=== PATIENT | male | born 1960 | race Caucasian/White ===

== ENCOUNTER 2017-04-08 10:51 | Day surgery (SDC) | payer OTHER ==
--- NOTE | 2017-04-05 10:47 | HP ---
DATE OF SURGERY: 04/08/2017 ADMISSION DIAGNOSIS: Umbilical hernia repair possible mesh. ANTICIPATED PROCEDURE: HISTORY OF PRESENT ILLNESS: The patient has developed umbilical hernia. He thinks this is Workman's Comp. It happened at work. He was seen and examined in the office. He does have an umbilical hernia. PAST MEDICAL HISTORY: ALLERGIES: NONE. MEDICATIONS: Synthroid, Tamsulosin. PAST SURGICAL HISTORY: Throat cancer 2000. SOCIAL HISTORY: Negative. FAMILY HISTORY: Negative. REVIEW OF SYSTEMS: The previous throat cancer. PHYSICAL EXAMINATION: VITAL SIGNS: Normal. CHEST: Clear. COR: Regular. ABDOMEN: Umbilical hernia present. IMPRESSION: Symptomatic umbilical hernia noticed at work. PLAN: Open herniorrhaphy possible mesh.
[~2017-04-08 10:51] MED LIST: Lactated Ringers 1,000 ML IV ONE; Sensorcaine 0.25% 10 ML ONE
[2017-04-08] MEDS ORDERED: DIPRIVAN 200 MG/20 ML IV ONE (10:52)
[2017-04-08] MEDS ORDERED: Decadron 4 MG INJ IV ONE (10:52)
[2017-04-08] MEDS ORDERED: Zemuron 100 MG/10 ML IV ONE (10:52)
[2017-04-08] MEDS ORDERED: SUBLIMAZE 100 MCG/2 ML IV ONE (10:52)
[2017-04-08] MEDS ORDERED: Zofran 4 MG/2 ML VIAL IV ONE (10:52)
[2017-04-08] MEDS ORDERED: TORAdol 30 mg Injection IV ONE (10:52)
[2017-04-08] MEDS ORDERED: CEFAZOLIN 2 GM-D5W BAG** 2 GM/50 ML ML IV SCH (12:00)
[2017-04-08] MEDS ORDERED: Lactated Ringers 1,000 ML IV SCH (12:00)
[2017-04-08] MEDS ORDERED: KEFZOL 1 GM ONE (15:00)
[2017-04-08] MEDS ORDERED: NORCO 7.5/325 MG TAB PO PRN (17:20)
[2017-04-08] MEDS ORDERED: NORCO 7.5/325 MG TAB ONE (17:21)
[2017-04-08 18:05] VITALS: BP 143/80; PULSE 73; O2SAT 95
--- NOTE | 2017-04-09 08:25 | OP ---
SURGERY DATE/TIME: 04/08/2017 1550 PREOPERATIVE DIAGNOSIS: Symptomatic umbilical hernia. POSTOPERATIVE DIAGNOSIS: Symptomatic umbilical hernia. PROCEDURE: Umbilical herniorrhaphy primary. SURGEON: Huseyin Eisenberg M.D. ANESTHESIA: General. COMPLICATIONS: None. CONDITION: Stable. INDICATION: The patient requiring herniorrhaphy. DESCRIPTION OF PROCEDURE: Taken to surgery. General anesthetic. Routine prep and drape. Transverse incision. There were two defects. They were repaired with sutures #0 Prolene directly repairing the defect. Approximation was satisfactory without tension. Hemostasis satisfactory. Closed with 3-0 Vicryl, 4-0 Vicryl and Steri-Strips. The patient tolerated the procedure satisfactorily.
== END 2017-04-08 18:05 | disposition home or self-care (01) ==
LOC: SDC 10:51
PROVIDERS: ATTEND Surgery
PROC: 0WQF0ZZ Repair Abdominal Wall, Open Approach (ICD-10-PCS; principal; 2017-04-08)
DX: K42.9 Umbilical hernia without obstruction or gangrene (principal)
CPT/HCPCS: 00750; 93005; J0690; J1100; J1885; J2405; J2704; J3010; A9270-GY